=== PATIENT | female | born 1975 | race Caucasian/White ===

== ENCOUNTER 2025-10-15 12:26 | Outpatient (CLI) | payer BC | END 2025-10-15 12:27 | disposition home or self-care (01) | LOC: CSHMRI 12:26 | PROVIDERS: ATTEND Specialist | DX: M50.122 Cervical disc disorder at C5-C6 level with radiculopathy (principal); M50.10 Cervical disc disorder with radiculopathy, unspecified cervical region | CPT/HCPCS: 72141 ==